=== PATIENT | male | born 1965 | race Caucasian/White ===

== ENCOUNTER 2019-03-11 06:43 | Inpatient (IN) | payer MEDICAID ==
[~2019-03-11] VITALS: Ht 170.2 cm; Wt 69.6 kg
[2019-03-11] VITALS (12 sets, daily range): BP systolic 98–128; BP diastolic 65–103; PULSE 61–123; RESP 13–25; Ht 170.2 cm; Wt 69.6 kg
[~2019-03-11 06:43] MED LIST: LORA-408; MULT1CAP57
[2019-03-11] MEDS ORDERED: SOD CHLORIDE 0.9% 1,000 ML IV STA (07:27)
[2019-03-11] MEDS ORDERED: LORAZEPAM 2 MG INJ IV ONE ×2 (07:30→16:30)
[2019-03-11] MEDS ORDERED: OLANZAPINE (ODT) 5 MG TAB ODT ONE (07:30)
[2019-03-11] MEDS ORDERED: POTASSIUM CHLORIDE (SR) 20 MEQ TAB PO STA (08:26)
[2019-03-11] MEDS ORDERED: POTASSIUM CHLORIDE 50 ML IVPB ONE (08:30)
[2019-03-11] MEDS ORDERED: DEXTROSE 5%-0.45% NACL 500 ML BAG IV ONE (09:30)
[2019-03-11] MEDS ORDERED: DIAZEPAM 10 MG/2 ML SYG IV ONE (09:30)
[2019-03-11] MEDS ORDERED: FOLIC ACID 1 MG TAB PO ONE (09:30)
[2019-03-11] MEDS ORDERED: THIAMINE 100 MG TAB PO ONE (09:30)
[2019-03-11] MEDS ORDERED: ONDANSETRON 4 MG INJ IV PRN ×2 (11:00→12:30)
[2019-03-11] MEDS ORDERED: ACETAMINOPHEN 325 MG TAB PO PRN ×2 (11:00→12:30)
[2019-03-11] MEDS ORDERED: HALOPERIDOL 5 MG INJ IV ONE (12:00)
[2019-03-11] MEDS ORDERED: MAGNESIUM SULFATE 1 GM/D5W 100 ML IVPB ONE (12:00)
[2019-03-11] MEDS ORDERED: DOCUSATE SODIUM 100 MG CAP PO PRN (12:30)
[2019-03-11] MEDS ORDERED: NACL 0.9% 3 ML SYG IV SCH (12:30)
[2019-03-11] MEDS ORDERED: HYDROCODONE/APAP (5/325) TAB PO PRN (12:30)
[2019-03-11] MEDS ORDERED: morphine 2 MG INJ IV PRN (12:30)
[2019-03-11] MEDS ORDERED: MAGNESIUM SULFATE 4 GM/100 ML 100 ML IVPB ONE (13:00)
[2019-03-11] MEDS: LORAZEPAM 2 MG INJ IV PRN (14:05)
[2019-03-11] MEDS: POTASSIUM CHLORIDE 100 ML IVPB SCH ×3 (16:47→21:43)
[2019-03-11] MEDS: NS + KCL 20 MEQ 1,000 ML IV SCH (16:51)
[2019-03-11] MEDS: LORAZEPAM (MDV) 60 MG in DEXTROSE 5% 30 ML IV SCH (18:00)
[2019-03-11] MEDS ORDERED: FAMOTIDINE 20 MG INJ ONE (19:35)
[2019-03-11] MEDS: LORAZEPAM 1 MG TAB PO SCH (21:00)
[2019-03-11] MEDS: FAMOTIDINE 20 MG INJ IV SCH (21:43)
[2019-03-12] VITALS (24 sets, daily range): BP systolic 100–149; BP diastolic 47–117; PULSE 49–106; RESP 12–30
[2019-03-12] MEDS ORDERED: DIAZEPAM 10 MG/2 ML SYG IV ONE (01:00)
[2019-03-12] MEDS: NS + KCL 20 MEQ 1,000 ML IV SCH ×3 (03:39→14:41)
[2019-03-12] MEDS: LORAZEPAM (MDV) 60 MG in DEXTROSE 5% 30 ML IV SCH ×2 (03:40→14:41)
[2019-03-12] MEDS: LORAZEPAM 1 MG TAB PO SCH ×3 (07:33→20:52)
[2019-03-12] MEDS: FAMOTIDINE 20 MG INJ IV SCH ×2 (08:11→21:12)
[2019-03-12] MEDS: ENOXAPARIN 40 MG/0.4 ML SYG SC SCH (08:16)
[2019-03-12] MEDS: DEXMEDETOMIDINE IN DEXTROSE 5% 50 ML IV SCH ×3 (12:41→21:07)
[2019-03-12] MEDS: MULTIVITAMINS 10 ML, THIAMINE 100 MG, FOLIC ACID 1 MG in SOD CHLORIDE 0.9% 1,000 ML IVPB SCH (21:12)
[2019-03-13] VITALS (24 sets, daily range): BP systolic 107–170; BP diastolic 64–103; PULSE 53–80; RESP 19–38
[2019-03-13] MEDS: DEXMEDETOMIDINE IN DEXTROSE 5% 50 ML IV SCH ×3 (02:14→17:29)
[2019-03-13] MEDS ORDERED: LORAZEPAM (MDV) 60 MG in DEXTROSE 5% 30 ML IV SCH (03:00)
[2019-03-13] MEDS ORDERED: DIAZEPAM 10 MG/2 ML SYG IV ONE (04:00)
[2019-03-13] MEDS: NS + KCL 20 MEQ 1,000 ML IV SCH ×2 (05:15→15:04)
[2019-03-13] MEDS: LORAZEPAM 1 MG TAB PO SCH ×3 (07:49→20:44)
[2019-03-13] MEDS: FAMOTIDINE 20 MG INJ IV SCH ×2 (07:49→20:44)
[2019-03-13] MEDS: ENOXAPARIN 40 MG/0.4 ML SYG SC SCH (08:00)
[2019-03-13] MEDS: MULTIVITAMINS 10 ML, THIAMINE 100 MG, FOLIC ACID 1 MG in SOD CHLORIDE 0.9% 1,000 ML IVPB SCH (08:05)
[2019-03-13] MEDS: CHLORDIAZEPOXIDE 25 MG CAP PO SCH ×3 (09:07→20:44)
[2019-03-14] VITALS (24 sets, daily range): BP systolic 106–163; BP diastolic 70–110; PULSE 52–126; RESP 14–31
[2019-03-14] MEDS: DEXMEDETOMIDINE IN DEXTROSE 5% 50 ML IV SCH ×2 (00:59→08:20)
[2019-03-14] MEDS: NS + KCL 20 MEQ 1,000 ML IV SCH ×3 (01:12→17:18)
[2019-03-14] MEDS ORDERED: MAGNESIUM SULFATE 3 GM in DEXTROSE 5% 100 ML IVPB ONE ×2 (08:00→09:00)
[2019-03-14] MEDS: LORAZEPAM 1 MG TAB PO SCH ×3 (08:39→20:15)
[2019-03-14] MEDS: CHLORDIAZEPOXIDE 25 MG CAP PO SCH ×3 (08:40→20:15)
[2019-03-14] MEDS: FAMOTIDINE 20 MG INJ IV SCH (08:40)
[2019-03-14] MEDS: ENOXAPARIN 40 MG/0.4 ML SYG SC SCH (08:43)
[2019-03-14] MEDS: MULTIVITAMINS 10 ML, THIAMINE 100 MG, FOLIC ACID 1 MG in SOD CHLORIDE 0.9% 1,000 ML IVPB SCH (08:55)
[2019-03-14] MEDS: FAMOTIDINE 20 MG TAB PO SCH (20:15)
[2019-03-15] VITALS (24 sets, daily range): BP systolic 113–162; BP diastolic 70–109; PULSE 69–116; RESP 14–35
[2019-03-15] MEDS: NS + KCL 20 MEQ 1,000 ML IV SCH ×3 (02:25→21:38)
[2019-03-15] MEDS: LORAZEPAM 2 MG INJ IV PRN (05:23)
[2019-03-15] MEDS: FAMOTIDINE 20 MG TAB PO SCH ×2 (08:27→21:28)
[2019-03-15] MEDS: LORAZEPAM 1 MG TAB PO SCH (08:27)
[2019-03-15] MEDS: MULTIVITAMINS 10 ML, THIAMINE 100 MG, FOLIC ACID 1 MG in SOD CHLORIDE 0.9% 1,000 ML IVPB SCH (08:27)
[2019-03-15] MEDS: CHLORDIAZEPOXIDE 25 MG CAP PO SCH (08:27)
[2019-03-15] MEDS: ENOXAPARIN 40 MG/0.4 ML SYG SC SCH (08:31)
[2019-03-15] MEDS: QUETIAPINE 25 MG TAB PO SCH ×2 (10:21→21:28)
[2019-03-15] MEDS: CHLORDIAZEPOXIDE 5 MG CAP PO SCH ×2 (13:53→21:28)
[2019-03-16] VITALS (11 sets, daily range): BP systolic 114–165; BP diastolic 61–104; PULSE 61–142; RESP 15–35
[2019-03-16] MEDS: LORAZEPAM 2 MG INJ IV PRN (02:18)
[2019-03-16] MEDS: QUETIAPINE 25 MG TAB PO SCH ×2 (08:50→20:21)
[2019-03-16] MEDS: FAMOTIDINE 20 MG TAB PO SCH (08:50)
[2019-03-16] MEDS: NS + KCL 20 MEQ 1,000 ML IV SCH ×2 (08:52→17:15)
[2019-03-16] MEDS: ENOXAPARIN 40 MG/0.4 ML SYG SC SCH (09:03)
[2019-03-16] MEDS: MULTIVITAMINS 10 ML, THIAMINE 100 MG, FOLIC ACID 1 MG in SOD CHLORIDE 0.9% 1,000 ML IVPB SCH (09:43)
[2019-03-16] MEDS: CHLORDIAZEPOXIDE 5 MG CAP PO SCH ×3 (10:16→20:22)
[2019-03-17 02:36] VITALS: BP 117/76; PULSE 56; RESP 18
[2019-03-17] MEDS: NS + KCL 20 MEQ 1,000 ML IV SCH ×2 (03:38→15:01)
[2019-03-17 08:20] VITALS: BP 108/73; PULSE 78; RESP 18
[2019-03-17] MEDS: QUETIAPINE 25 MG TAB PO SCH ×2 (08:28→20:20)
[2019-03-17] MEDS: FAMOTIDINE 20 MG TAB PO SCH (08:28)
[2019-03-17] MEDS: CHLORDIAZEPOXIDE 5 MG CAP PO SCH ×3 (08:28→20:20)
[2019-03-17] MEDS: ENOXAPARIN 40 MG/0.4 ML SYG SC SCH (08:34)
[2019-03-17 14:52] VITALS: BP 109/70; PULSE 70; RESP 16
[2019-03-17] MEDS ORDERED: NS + KCL 20 MEQ 1,000 ML IV SCH (17:30)
[2019-03-17 20:15] VITALS: BP 119/78; PULSE 75; RESP 18
[2019-03-17] MEDS: THIAMINE 100 MG TAB PO SCH (20:20)
[2019-03-18] MEDS: NS + KCL 20 MEQ 1,000 ML IV SCH ×2 (01:42→12:16)
[2019-03-18 01:46] VITALS: BP 104/64; PULSE 64; RESP 17
[2019-03-18 07:19] VITALS: BP 113/71; PULSE 58; RESP 17
[2019-03-18] MEDS: CHLORDIAZEPOXIDE 5 MG CAP PO SCH ×2 (09:03→12:16)
[2019-03-18] MEDS: THIAMINE 100 MG TAB PO SCH (09:03)
[2019-03-18] MEDS: QUETIAPINE 25 MG TAB PO SCH ×2 (09:04→20:40)
[2019-03-18] MEDS: FAMOTIDINE 20 MG TAB PO SCH (09:04)
[2019-03-18] MEDS: ENOXAPARIN 40 MG/0.4 ML SYG SC SCH (09:06)
[2019-03-18 14:42] VITALS: BP 122/85; PULSE 84; RESP 16
[2019-03-18 20:02] VITALS: BP 126/79; PULSE 83; RESP 19
[2019-03-19 01:43] VITALS: BP 118/72; PULSE 79; RESP 18
[2019-03-19 07:53] VITALS: BP 106/65; PULSE 76; RESP 18
[2019-03-19] MEDS: THIAMINE 100 MG TAB PO SCH (08:16)
[2019-03-19] MEDS: FAMOTIDINE 20 MG TAB PO SCH (08:16)
[2019-03-19] MEDS: ENOXAPARIN 40 MG/0.4 ML SYG SC SCH (08:19)
[2019-03-19 14:58] VITALS: BP 111/74; PULSE 87; RESP 18
== END 2019-03-19 19:10 | disposition home or self-care (01) | DRG 897 ==
LOC: E/R 06:43 → 6WM 10:37 → ICU 16:30 → MS3 03-16 07:52
PROVIDERS: ADMIT Internal Medicine; ATTEND Internal Medicine
DX: F10.239 Alcohol dependence with withdrawal, unspecified (principal); E46 Unspecified protein-calorie malnutrition; E87.1 Hypo-osmolality and hyponatremia; Z68.24 Body mass index [BMI] 24.0-24.9, adult; R62.7 Adult failure to thrive; E87.6 Hypokalemia; E83.42 Hypomagnesemia; R45.1 Restlessness and agitation; F43.20 Adjustment disorder, unspecified; Y90.0 Blood alcohol level of less than 20 mg/100 ml
CPT/HCPCS: 36415; 70450; 80048; 80053; 80307; 81001; 82962; 83036; 83735; 84100; 84132; 84443; 85025; 85610; 87081; 93005; 96374; 96375; 97161; J1630; J1650; J2060; J2270; J3360; J3411; J3475; J3480; J3490; J7030